=== PATIENT | female | born 1985 | race Caucasian/White ===

== ENCOUNTER 2017-09-05 22:37 | Emergency (ER) | payer MEDICAID, SELFPAY ==
[2017-09-05 22:37] VITALS: BP 109/74; PULSE 104; RESP 16; TEMP 37.2; O2SAT 97; BMI 22.1
--- NOTE | 2017-09-05 23:40 | ED.VISSUMM ---
- ER Visit Summary Date of Service: 09/05/17 Chief Complaint: [] Abscess left lateral neck for for 5 days History of Present Illness: The patient is a 32 F [] real past history no history of diabetes MRSA or infections no compromising issues she reports for about for 5 days she has noticed a swelling area involving the left lateral neck area intermittently drains again she has no history of MRSA or diabetes otherwise healthy no other complaints no trauma Physical Examination: [] But a 2 cm circular area to the left lateral neck that is warm and slightly fluctuant it has come to a volcanic-type head the oral cavity HEENT exam is unremarkable the anterior necks unremarkable neck is fully supple the midline neck is unremarkable the chest abdomen upper lower extremities the rest of the skin exams unremarkable Test Results: [] Emergency Department Course and Treatment: [] Patient asked for I&D this area was sterilely prepped local anesthetic and then opened with I&D 11 blade cruciate productive of thick yellow fluid irrigated loculations broken down, cultures obtained patient will be started on Bactrim, Naprosyn and Percocet secondary to allergies to Vicodin and she will follow-up [place] on-call return for change in symptoms she understands that wound culture result is not available tonight and has to be followed up Treatment Plan: [] Disposition: [] Stable Impression: [] Left lateral neck abscess status post I&D This note was generated with [employer] dictation software. It may contain incorrect words, spelling, and punctuation that were not noted in review of the chart prior to signing ED Disposition - Plan for ED Patient: Chief Complaint: Abscess Referrals: Care Physician,No Primary [Primary Care Provider] -
--- NOTE | 2017-09-05 23:41 | ED.DEP ---
ED Disposition - Plan for ED Patient: Chief Complaint: Abscess Instructions: ED Abscess IandD Prescriptions: Oxycodone HCl/Acetaminophen [Percocet 5/325] 1 tab PO Q6H PRN PRN #12 tab PRN Reason: Pain Naproxen [Naprosyn] 500 mg PO BID PRN #20 tab Smz/Tmp Ds [Bactrim Ds] 2 tab PO BID #28 tab Referrals: Care Physician,No Primary [Primary Care Provider] - Vj Diaz DO [STAFF PHYSICIAN] -
--- NOTE | 2017-09-05 23:45 | ED.DEP ---
ED Disposition - Plan for ED Patient: Chief Complaint: Abscess Instructions: ED Abscess IandD Prescriptions: Oxycodone HCl/Acetaminophen [Percocet 5/325] 1 tab PO Q6H PRN PRN #12 tab PRN Reason: Pain Naproxen [Naprosyn] 500 mg PO BID PRN #20 tab Smz/Tmp Ds [Bactrim Ds] 2 tab PO BID #28 tab Referrals: Vj Diaz DO [STAFF PHYSICIAN] - Care Physician,No Primary [Primary Care Provider] -
[2017-09-05] MEDS: Smz/Tmp Ds Tablet 1 TABLET PO (23:55)
[2017-09-05] MEDS: Ondansetron ODT 4 MG Tablet PO (23:55)
[2017-09-06 00:17] VITALS: RESP 18
--- NOTE | 2017-09-08 11:05 | ED.RN ---
Dr Jay determines no further action needed related to wound culture results.
== END 2017-09-06 00:18 | disposition home or self-care (01) ==
LOC: ED 09-06 00:15
PROVIDERS: Emergency Provider Emergency Medicine
DX: L02.11 Cutaneous abscess of neck (principal); Z79.899 Other long term (current) drug therapy
CPT/HCPCS: 10060; 87070; 87077; 87186; 87205; 96374; 99283

== ENCOUNTER 2017-09-18 11:13 | Emergency (ER) | payer MEDICAID, SELFPAY ==
[2017-09-18 11:14] VITALS: BP 128/91; PULSE 80; RESP 18; TEMP 36.4; O2SAT 100; BMI 20.5
--- NOTE | 2017-09-18 11:58 | ED.DCSUM_ITS ---
- ER Visit Summary Date of Service: 09/18/17 Chief Complaint: Low back pain History of Present Illness: The patient is a 32 F history of depression, PTSD, schizophrenia. Reportedly rheumatoid arthritis. Denies any fall or trauma. She denies any fever or dysuria. She has never had any back surgery. She says her mid lower back hurt this morning. She has had pain like this before. Denies any numbness or weakness to her lower extremities. No bowel or bladder incontinence or retention. Physical Examination: Well-appearing young female. Vital signs are stable afebrile. H EENT exam unremarkable. Neck nontender. Lungs clear to auscultation bilaterally. Heart regular rhythm no murmur. Abdomen is soft and nontender. Normal bowel sounds no peritoneal signs. She is moving all 4 extremities. Neurovascular intact. No cauda equina. No saddle anesthesia. 5 out of 5 motor strength to both dorsi and plantar flexion to both lower extremities. Normal medial thigh sensation. Normal range of motion. Back exam is unremarkable. She describes pain in the lower thoracic and lumbar spine there is no ecchymosis or bruising. No signs of trauma. No warmth or redness. And no localized point of tenderness. Test Results: [] Emergency Department Course and Treatment: IM Toradol discharged to home. Treatment Plan: [] Disposition: Discharge Impression: Acute atraumatic musculoskeletal back pain History of PTSD, depression and schizophrenia. This note was generated with [employer] dictation software. It may contain incorrect words, spelling, and punctuation that were not noted in review of the chart prior to signing ED Disposition - Plan for ED Patient: Chief Complaint: Back Referrals: Care Physician,No Primary [Primary Care Provider] -
--- NOTE | 2017-09-18 11:58 | ED.DEP ---
ED Disposition - Plan for ED Patient: Disposition: Home or Assisted Living Chief Complaint: Back Instructions: ED Neck Back Pain General Referrals: Ruben Jay MD [NON-STAFF] - 1 Week if not improving Additional Instructions: Motrin and Tylenol for pain. Follow-up the primary care physician if not improving in 1 week.
[2017-09-18] MEDS: Ketorolac 60 MG/2 ML Vial IM (12:13)
== END 2017-09-18 12:34 | disposition home or self-care (01) ==
PROVIDERS: Emergency Provider Emergency Medicine
DX: M54.5 Low back pain (principal); F43.10 Post-traumatic stress disorder, unspecified; F32.9 Major depressive disorder, single episode, unspecified; F20.9 Schizophrenia, unspecified; M06.9 Rheumatoid arthritis, unspecified; F12.90 Cannabis use, unspecified, uncomplicated; Z79.899 Other long term (current) drug therapy; Z72.0 Tobacco use
CPT/HCPCS: 96372; 99282

== ENCOUNTER 2020-11-28 23:25 | Emergency (ER) | payer MEDICAID, SELFPAY ==
[2020-11-28 23:26] VITALS: BP 140/84; PULSE 90; RESP 18; TEMP 36.2; O2SAT 97; BMI 34.0
--- NOTE | 2020-11-28 23:40 | ED.VIS.GEN ---
History of Present Illness Chief Complaint: Dental Informant: Patient Narrative: 35-year-old female presents with concern for dental pain. It is been present over the past 1 week. Aching pain. Left lower jaw. Denies any fevers, neck pain, vision change, headache. Past Medical History - Allergies and Home Meds Allergies/Adverse Reactions: Allergies latex Allergy (Mild, Verified 11/28/20 23:28) Rash acetaminophen [From Vicodin] Adverse Reaction (Verified 11/28/20 23:28) Nausea hydrocodone [From Vicodin] Adverse Reaction (Verified 11/28/20 23:28) Nausea tramadol Adverse Reaction (Verified 11/28/20 23:28) Nausea Primary Care Physician: Care Physician,No Primary [Primary Care Provider] - Prior records reviewed: Yes Past Medical History: None Surgical History: no surgical history Lives: Spouse/ Significant Other Smoking Status: Current every day smoker Alcohol: None Drugs: None Review of Systems General: Denies: Chills, Fever, Sweats Eyes: Denies: Visual changes - bilaterally, Diplopia ENT: Reports: - - Dental pain. Denies: Rhinorrhea, Sore throat Cardiovascular: Denies: Chest pain, Palpitations Respiratory: Denies: Dyspnea, Cough, Dyspnea on exertion Gastrointestinal: Denies: Abdominal pain, Nausea, Vomiting, Diarrhea, Melena, Hematochezia Genitourinary: Denies: Dysuria, Hematuria, Frequency Musculoskeletal: Denies: Back pain, Extremity Pain Skin: Denies: Rash, Wounds Neurological: Denies: Headache, Weakness, Numbness Physical Exam Vital Signs/Narrative: Vital Signs Temp Pulse Resp BP Pulse Ox 11/28/20 23:26 97.2 F L 90 18 140/84 H 97 Inital Vital Signs reviewed: Yes General: Well nourished, Well developed, No Acute Distress Head: Normocephalic, Atraumatic Eyes: Perrl, EOMI ENT: Moist mucous membranes, No rhinorrhea, - - Poor dentition throughout. Appears there is a wisdom tooth to the left lower jaw that has grown in incorrectly. I do not see any periapical abscess. Neck: Supple, Nontender Cardiovascular: Regular rate, Regular rhythm, No murmurs Respiratory: No distress, CTA bilaterally, Chest nontender Abdomen: Soft, Nontender, Nondistended, Normal bowel sounds Back: Nontender, Normal Inspection Extremities: Nontender, No edema Skin: Normal color, No rash Neurological: Alert, Oriented x3, Cranial nerves II-XII grossly intact, Normal Strength, Normal Sensation Psychological: Normal affect, Normal Mood Diagnostic/Tx/Re-eval - Medical Decision Making Patient appears well and nontoxic. No periapical abscess. Will be placed on Naprosyn and penicillin VK. Stable at time of discharge. Impression: 1. Dental pain ED Disposition - Plan for ED Patient: Disposition: Home or Assisted Living Instructions: ED Dental Pain Prescriptions: Naproxen [Naprosyn] 500 mg PO BID #14 tablet Prescription Printed Penicillin V Potassium 500 mg PO 4X/DAY #40 tablet Prescription Printed
[2020-11-28] MEDS: Ketorolac 15 MG/ML Vial IM (23:52)
[2020-11-28] MEDS: Penicillin Vk 250 MG Tablet 500 MG PO (23:53)
[2020-11-29 00:23] VITALS: RESP 16
== END 2020-11-29 00:23 | disposition home or self-care (01) ==
LOC: ED 23:46
PROVIDERS: Emergency Provider Emergency Medicine
DX: K08.89 Other specified disorders of teeth and supporting structures (principal); F17.200 Nicotine dependence, unspecified, uncomplicated
CPT/HCPCS: 96372; 99282

== ENCOUNTER 2020-12-24 21:54 | Emergency (ER) | payer MEDICAID, SELFPAY ==
[2020-12-24 21:55] VITALS: BP 111/75; PULSE 132; RESP 16; TEMP 36.7; O2SAT 98; BMI 34.7
[2020-12-24] MEDS: 0.9% Normal Saline 1,000 ML 1000 ML IV (22:40)
[2020-12-24] MEDS: Ondansetron 4 MG/2 ML Vial IV (22:41)
[2020-12-24 22:48] LABS: Absolute Lymphocyte Count 2.42 X10^3/uL (0.83-4.51); Absolute Neutrophil Count 3.8 X10^3/uL (2.0-7.7); Basophil# 0.06 X10^3/uL; Basophil% 0.7 % (0-1); Eosinophil# 1.24 X10^3/uL; Eosinophils% 15.1 % (0-5); Hematocrit 44.2 % (37-47); Hemoglobin 14.5 g/dL (12.0-15.0); Lymphocyte # 2.42 X10^3/ul (0.83-4.51); Lymphocyte % 29.5 % (19-41); Mean Corp Hgb Conc 32.8 g/dL (32-36); Mean Corpuscular Hgb 28.8 pg (27.0-32.0); Mean Corpuscular Volume 87.9 fL (81-99); Mean Platelet Vol. 10.9 fl (6.2-12.0); Monocyte# 0.65 X10^3/uL; Monocyte% 7.9 % (0-10); NRBC Flagged by Analyzer 0 % (0-5); Neutrophil # 3.82 X10^3/uL (2.7-7.7); Neutrophil % 46.6 % (47-70); Platelet Count 269 K/mm3 (150-450); RBC Distribution Width CV 13.2 % (11.6-14.6); RBC Distribution Width SD 42.8 fl (35.1-43.9); Red Blood Count 5.03 M/mm3 (4.2-5.4); White Blood Count 8.2 K/mm3 (4.4-11.0)
[2020-12-24] MEDS: Famotidine 200 MG/20 ML MDV 20 MG in 0.9% Normal Saline (Pres. free 8 ML 300 MG IV (22:56)
[2020-12-24 23:00] LABS: Lipase 73 U/L (73-393)
--- NOTE | 2020-12-24 23:45 | ED.VIS.GI ---
HPI HPI - GI History of Present Illness Chief Complaint: Abd Pain Informant: patient Abdominal Pain/Flank Pain Onset: Days (Onset for several days.) Timing: Continuous Quality: Burning Location: Epigastric, RUQ and LUQ Maximum Severity: Severe Worsened by: Food Nausea/Vomiting/Emesis GI Symptom: Positive for Nausea; Negative for Vomiting Onset: Yesterday Diarrhea/Melena/Hematochezia GI Symptom: Negative for Diarrhea Associated Symptoms Associated Symptoms: Negative for Dysuria, Frequency, Hematuria and Urgency Narrative Narrative: Patient is a 35-year-old woman who presents with burning epigastric bilateral upper abdominal pain. She is scheduled for an EGD. She does report intolerance to greasy and fried foods. There is family history cholelithiasis. There is also history of inflammatory bowel disorder. She denies blood or mucus in her stool. She denies diarrhea. She denies bouts of diarrhea and then bouts of constipation. She denies fever, chills night sweats. She denies dysuria, frequency, urgency or hematuria. She has not taken anything for the pain. Food exacerbates the pain. The pain does not radiate through to her back. There is no history of trauma. She denies cardiac respiratory symptoms. Menses ended today. Prior similar symptoms: Yes Recent Illness/Hospitalization: No PFSH PFS Medical History Alcohol abuse Anxiety Bipolar affective, mixed Boxers fracture PTSD (post-traumatic stress disorder) Schizo affective schizophrenia Home Medications Abilify QMONTH 11/28/20 [History Last Taken Unknown] naproxen 500 mg PO BID #14 tablet 11/28/20 [Rx Last Taken Unknown] penicillin V potassium 500 mg PO 4X/DAY #40 tablet 11/28/20 [Rx Last Taken Unknown] omeprazole 40 mg PO DAILY #30 cap 12/25/20 [Rx Last Taken Unknown] Allergy/AdvReac Type Severity Reaction Status Date / Time latex Allergy Mild Rash Verified 12/24/20 21:57 acetaminophen [From Vicodin] AdvReac Nausea Verified 12/24/20 21:57 hydrocodone [From Vicodin] AdvReac Nausea Verified 12/24/20 21:57 tramadol AdvReac Nausea Verified 12/24/20 21:57 Surgical History H/O plastic surgery Hx of removal of ovary Social History (Updated 12/24/20 @ 23:[address] Andrés Juarez MD) Smoking Status: Current every day smoker alcohol intake: current alcohol intake frequency: a few times a month substance use type: does not use ROS ROS ED Constitutional Constitutional ED: Denies chills, fever(s), subjective or sweats ENT ENT ED: Denies ear pain, rhinorrhea or sore throat Cardiovascular Cardiovascular: Denies chest pain or palpitations Respiratory/Chest Respiratory/Chest: Denies cough, dyspnea or dyspnea on exertion Gastrointestinal Gastrointestinal: Reports abdominal pain and nausea; Denies constipation, diarrhea, melena or vomiting Genitourinary Genitourinary ED: Denies dysuria, hematuria or urinary frequency Musculoskeletal Musculoskeletal: Denies arthralgias, back pain, myalgias or neck pain Integumentary Denies rash Neurologic Neurologic: Denies headache(s), paresthesias or weakness Hematologic/Lymphatic Hematologic/Lymphatic: Denies easy bleeding or easy bruising EXAM Physical Exam Const Vital Signs: 12/24/20 21:55 12/25/20 00:03 Temperature 98.0 F Temperature Source Temporal Pulse Rate 132 H 75 Respiratory Rate 16 16 Blood Pressure 111/75 110/76 Blood Pressure Mean 87 87 Pulse Ox 98 100 Oxygen Delivery Method Room Air Positive well nourished, well developed and obese General Appearance ED: well developed Nutritional Appearance: obese HEENT Reports TM's clear and dry mucous membranes normocephalic and atraumatic Tympanic Membrane ED: Yes TM's clear Mouth ED: Yes dry mucous membranes Mouth: dry mucous membranes Eyes PERRL and EOMs intact bilaterally General Eye ED: Negative for pale conjunctiva or scleral icterus Neck no lymphadenopathy, supple and no JVD General: tenderness Resp normal respiratory effort and clear to auscultation bilaterally Cardio regular rhythm, S1 normal heart sound, S2 normal heart sound and no murmurs Rate: tachycardic GI non-distended and no masses Palpation: soft and tender LUQ and RUQ; Negative for hepatomegaly, splenomegaly, mass or pulsatile mass Back/Spine no CVA tenderness Thoracic Spine / Upper Back: Negative for thoracic spinal tenderness Lumbar Spine / Lower Back: Negative for lumbar spinal tenderness Extremity full ROM General Extremety ED: Negative for edema General Extremity: Negative for edema Neuro CN's II-XII intact bilaterally and no sensory deficits noted Sensorium / Orientation: alert, oriented to person, oriented to place and oriented to time Motor Exam: strength 5/5 throughout Psych mental status grossly normal and thought process normal Skin no wounds Lesions: no lesions Rashes: no rashes MDM MDM MDM Narrative Medical decision making narrative: Based on location of pain and description this may represent esophagitis, gastritis, peptic ulcer disease also need to consider cholelithiasis with biliary colic. Appropriate blood work was ordered. She was treated with IV Pepcid. Lab Data Attestation: I reviewed the patient's lab results. Labs: Laboratory Results - last 24 hr 12/24/20 12/24/20 22:40 22:40 WBC 8.2 RBC 5.03 Hgb 14.5 Hct 44.2 MCV 87.9 MCH 28.8 MCHC 32.8 RDW Std Deviation 42.8 RDW Coeff of Evelyn 13.2 Plt Count 269 MPV 10.9 Immature Gran % (Auto) 0.200 Neut % (Auto) 46.6 L Lymph % (Auto) 29.5 Rolette % (Auto) 7.9 Eos % (Auto) 15.1 H Baso % (Auto) 0.7 Absolute Neuts (auto) 3.8 Absolute Lymphs (auto) 2.42 Nucleated RBC % 0 Lipase 73 Patient's laboratory results are unremarkable. Patient was reassessed at 1240 a.m. She reports significant improvement. Patient was informed to may have an ulcer versus gastritis versus esophagitis. She was prescribed omeprazole. She was instructed to keep appointment for EGD. Discharge Plan Triage Chief Complaint: Abd Pain ED Provider: Andrés Juarez Dx/Rx/DC Orders Clinical Impression: Acute epigastric pain, Heartburn Instructions: ED Epigastric Pain (Uncertain Cause) Prescriptions: New omeprazole 40 mg capsule,delayed release(DR/EC) 40 mg PO DAILY Qty: 30 RF: 0 No Action Abilify QMONTH RF: 0 penicillin V potassium 500 MG tablet 500 mg PO 4X/DAY Qty: 40 RF: 0 naproxen 500 MG tablet 500 mg PO BID Qty: 14 RF: 0 Primary Care Provider: Care Physician,No Primary Referrals: Care Physician,No Primary [Primary Care Provider] - Doctor,Your [STAFF PHYSICIAN] - 1-2 Weeks Disposition Disposition: Home, self care
[2020-12-25 00:03] VITALS: BP 110/76; PULSE 75; RESP 16; O2SAT 100
== END 2020-12-25 00:52 | disposition home or self-care (01) ==
PROVIDERS: Emergency Provider Emergency Medicine
DX: R10.13 Epigastric pain (principal); R12 Heartburn; R11.0 Nausea; E66.9 Obesity, unspecified; Z68.34 Body mass index [BMI] 34.0-34.9, adult; F31.60 Bipolar disorder, current episode mixed, unspecified; F43.10 Post-traumatic stress disorder, unspecified; F25.9 Schizoaffective disorder, unspecified; Z79.899 Other long term (current) drug therapy; F17.200 Nicotine dependence, unspecified, uncomplicated
CPT/HCPCS: 83690; 85025; 96361; 96374; 96375; 99285; J7030; A4216; J2405; J3490

== ENCOUNTER → 2021-01-21 07:04 | Outpatient (CLI) | payer MEDICAID, SELFPAY ==
[2020-12-24 21:55] VITALS: BMI 34.7
[2021-01-21] MEDS: Methacholine Chloride 18 ml neb kit INHALATION (07:19)
--- NOTE | 2021-01-21 13:14 | BRONCHALL ---
Bronchoprovocation Challenge Bronchoprovocation Challenge Bronchoprovocation Challenge: INTRODUCTION: The patient is a 35-year-old female that presents for a methacholine challenge secondary to shortness of breath. Respiratory therapy reported good patient effort and reproducible results. INTERPRETATION: Initial spirometry did not show any large airways obstructive ventilatory defect and preserved airflows throughout. The patient was then given progressively increasing doses of methacholine in a standardized fashion. At no point during testing did the patient's FEV1 drop to the threshold that would be considered a positive test. IMPRESSION: Negative methacholine challenge.
== END ==
PROVIDERS: PCP Family Medicine; Referring Provider Physician Assistant; Visit Provider Physician Assistant
DX: R06.02 Shortness of breath (principal); R06.2 Wheezing
CPT/HCPCS: 94070; 95070

== ENCOUNTER 2021-04-30 23:35 | Emergency (ER) | payer MEDICAID, SELFPAY ==
[2021-04-30 23:38] VITALS: BP 99/77; PULSE 100; RESP 16; TEMP 35.6; O2SAT 99; BMI 33.2
[2021-05-01 01:06] VITALS: BP 101/78; PULSE 74; RESP 16; TEMP 36.6; O2SAT 97
--- NOTE | 2021-05-01 01:11 | EX.ED.DYSGE1 ---
HPI History of Present Illness Chief Complaint: Abscess Informant: patient Narrative Narrative: Patient presents with a red sore area in her right axilla. This started about 2 days ago. She has no fevers chills sweats or systemic symptoms. No known trauma. She did have a new deodorant but has not used deodorant for couple days because of the soreness. Pressing on it makes it worse. Nothing makes it better. She has not had these before. No other lesions. PFSH PFSH Medical History Alcohol abuse Anxiety Bipolar affective, mixed Boxers fracture PTSD (post-traumatic stress disorder) Schizo affective schizophrenia Home Medications Abilify QMONTH 11/28/20 [History Last Taken Unknown] omeprazole 40 mg PO DAILY #30 cap 12/25/20 [Rx Last Taken Unknown] cephalexin 500 mg PO Q6 #40 cap 05/01/21 [Rx Last Taken Unknown] ondansetron 4 mg PO Q8H 2 Days #6 tab 05/01/21 [Rx Last Taken Unknown] oxycodone-acetaminophen [Percocet] 1 tab PO Q6H PRN 3 Days #10 tab 05/01/21 [Rx Last Taken Unknown] sulfamethoxazole-trimethoprim [Bactrim DS] 1 tab PO BID #20 tab 05/01/21 [Rx Last Taken Unknown] Allergy/AdvReac Type Severity Reaction Status Date / Time latex Allergy Mild Rash Verified 12/24/20 21:57 acetaminophen [From Vicodin] AdvReac Nausea Verified 12/24/20 21:57 hydrocodone [From Vicodin] AdvReac Nausea Verified 12/24/20 21:57 tramadol AdvReac Nausea Verified 12/24/20 21:57 Surgical History H/O plastic surgery Hx of removal of ovary Social History Smoking Status: Current every day smoker tobacco type: cigarettes alcohol intake: current alcohol intake frequency: a few times a month substance use type: does not use ROS ROS ED Constitutional Constitutional ED: Denies chills, fever(s) or subjective Cardiovascular Cardiovascular: Denies chest pain or racing heartbeat Respiratory/Chest Respiratory/Chest: Denies dyspnea Gastrointestinal Gastrointestinal: Denies nausea or vomiting Musculoskeletal Musculoskeletal: Reports other Details: See history of present illness. Integumentary Reports other Details: See history of present illness. Neurologic Neurologic: Denies headache(s) Endocrine Endocrinology: Denies polydipsia or polyuria EXAM Physical Exam Const Vital Signs: 04/30/21 23:38 05/01/21 01:06 Temperature 96.1 F L 97.8 F Temperature Source Axillary Temporal Pulse Rate 100 74 Respiratory Rate 16 16 Blood Pressure 99/77 101/78 Blood Pressure Mean 84 85 Pulse Ox 99 97 Oxygen Delivery Method Room Air Room Air Positive well nourished and well developed General Appearance ED: well developed and NAD HEENT Reports moist mucous membranes Eyes General Eye ED: Negative for scleral icterus Resp normal respiratory effort Cardio regular rate and regular rhythm GI normal to inspection, nondistended, normoactive bowel sounds and non-tender Palpation: soft Extremity Extremity Narrative: Patient does have an erythematous area in her right axilla. It is about 2 cm around. It feels firm and indurated. I do not feel a soft center. I do not feel any surrounding lymphadenopathy. Neuro Sensorium / Orientation: alert Skin General Skin Exam: other See above. MDM MDM MDM Narrative Medical decision making narrative: I talked with the patient about anesthesia and incision. We agreed to do ultrasound. I did bedside ultrasound of the area down to about 5 cm. I do not see any fluctuant borders fluid-filled area at this time. I think this is indurated. It is only been going on for about 40 to 48 hours. I explained that we will still get her on antibiotics. This should either resolve with antibiotics or it may come to a soft center in a head that could be drained. Either of these should occur within the next 72 hours. If it does rise up and get a soft center she should return for drainage as this will help her get better sooner. I also did online prescribing report check. She has 0 controlled substances. Discharge Plan Triage Chief Complaint: Abscess ED Provider: Ja Gamble Dx/Rx/DC Orders Clinical Impression: Cellulitis of axilla, right Instructions: ED Cellulitis Prescriptions: New cephalexin [cephalexin] 500 MG capsule 500 mg PO Q6 Qty: 40 RF: 0 sulfamethoxazole-trimethoprim [Bactrim DS] 800-160 mg tablet 1 tab PO BID Qty: 20 RF: 0 oxycodone-acetaminophen [Percocet] 5-325 mg tablet 1 tab PO Q6H PRN (Reason: pain) 3 Days Qty: 10 RF: 0 ondansetron 4 mg tablet,disintegrating 4 mg PO Q8H 2 Days Qty: 6 RF: 0 No Action Abilify QMONTH RF: 0 omeprazole 40 mg capsule,delayed release(DR/EC) 40 mg PO DAILY Qty: 30 RF: 0 Primary Care Provider: Regino Luis Referrals: Regino Luis MD [Primary Care Provider] - 3-5 Days if not improving Disposition Disposition: Home, Self Care
[2021-05-01] MEDS: Ondansetron ODT 4 MG Tablet PO (01:38)
[2021-05-01] MEDS: Cephalexin 250 MG Capsule 500 MG PO (01:38)
[2021-05-01] MEDS: oxyCODONE 5 MG Tablet PO (01:38)
[2021-05-01] MEDS: Smz/Tmp Ds Tablet 1 TABLET PO (01:38)
[2021-05-01 01:43] VITALS: RESP 16
== END 2021-05-01 01:43 | disposition home or self-care (01) ==
PROVIDERS: Emergency Provider Emergency Medicine; PCP Family Medicine
DX: L03.111 Cellulitis of right axilla (principal); F43.10 Post-traumatic stress disorder, unspecified; F41.9 Anxiety disorder, unspecified; F31.9 Bipolar disorder, unspecified; F25.9 Schizoaffective disorder, unspecified; Z79.899 Other long term (current) drug therapy; F17.210 Nicotine dependence, cigarettes, uncomplicated
CPT/HCPCS: 99283

== ENCOUNTER 2021-12-15 22:41 | Emergency (ER) | payer MEDICARE, MEDICAID, SELFPAY ==
[2021-12-15 22:42] VITALS: BP 125/88; PULSE 100; RESP 15; TEMP 36.1; O2SAT 99; BMI 31.7
--- NOTE | 2021-12-15 23:05 | EX.ED.DYSGE1 ---
HPI History of Present Illness Chief Complaint: Dental Narrative Narrative: Patient is a 36-year-old female who states about 1 week ago she was eating when she broke one of her left lower molar. She states she placed a [id number] temporary filling and felt she was doing well but in the last 1 day has had increased left lower jaw pain and swelling. She denies any fevers chills difficulty breathing or swallowing but states she does have concern for developing infection and therefore comes in for evaluation COUNT INCLUDES THE [facility] PFS Medical History Alcohol abuse Anxiety Bipolar affective, mixed Boxers fracture PTSD (post-traumatic stress disorder) Schizo affective schizophrenia Home Medications Abilify QMONTH 11/28/20 [History Last Taken Unknown] clindamycin HCl 300 mg PO 4X/DAY 10 Days #40 cap 12/15/21 [Rx Last Taken Unknown] oxycodone-acetaminophen [Percocet] 1 tab PO Q6H PRN 3 Days #12 tab 12/15/21 [Rx Last Taken Unknown] Allergy/AdvReac Type Severity Reaction Status Date / Time latex Allergy Mild Rash Verified 12/15/21 22:43 acetaminophen [From Vicodin] AdvReac Nausea Verified 12/15/21 22:43 hydrocodone [From Vicodin] AdvReac Nausea Verified 12/15/21 22:43 tramadol AdvReac Nausea Verified 12/15/21 22:43 Surgical History H/O plastic surgery Hx of removal of ovary Social History Smoking Status: Current every day smoker tobacco type: cigarettes alcohol intake: current alcohol intake frequency: a few times a month substance use type: does not use ROS ROS ED Constitutional Constitutional ED: Denies chills or fever(s) ENT ENT ED: Reports other Details: Positive dental pain ; Denies sore throat Cardiovascular Cardiovascular: Denies chest pain Respiratory/Chest Respiratory/Chest: Denies cough or dyspnea Gastrointestinal Gastrointestinal: Denies abdominal pain, diarrhea, nausea or vomiting Genitourinary Genitourinary ED: Denies dysuria Musculoskeletal Musculoskeletal: Denies myalgias Integumentary Denies rash Neurologic Neurologic: Denies headache(s) Hematologic/Lymphatic Hematologic/Lymphatic: Denies easy bleeding or easy bruising EXAM Physical Exam Const Vital Signs: 12/15/21 22:42 12/15/21 23:12 Temperature 96.9 F L Temperature Source Temporal Pulse Rate 100 Respiratory Rate 15 18 Blood Pressure 125/88 H Blood Pressure Mean 100 Pulse Ox 99 Oxygen Delivery Method Room Air Positive well nourished and well developed General Appearance ED: well developed HEENT Reports moist mucous membranes HEENT Narrative: Patient has dental caries present with soft tissue swelling in the left lower jaw but no obvious dental abscess. No oral lesions no airway edema or compromise Eyes PERRL and EOMs intact bilaterally Neck supple Neck Narrative: No brawny edema in the submental space to suggest Nando's angina Resp normal respiratory effort and clear to auscultation bilaterally Cardio regular rate and regular rhythm Extremity normal to inspection Neuro oriented x3 and CN's II-XII intact bilaterally Sensorium / Orientation: alert Motor Exam: strength 5/5 throughout Psych mental status grossly normal Skin no rashes or lesions noted MDM MDM MDM Narrative Medical decision making narrative: Patient presented to the ER afebrile without signs of respiratory distress or Nando's angina and therefore I felt no need for imaging or laboratory studies. Patient was informed she most likely has a developing dental infection but as there is no obvious abscess on exam there is no need for incision and drainage. Therefore patient was placed on antibiotics and pain medication and will follow up with her dentist for further evaluation and treat Discharge Plan Triage Chief Complaint: Dental ED Provider: Hakeem Aponte Dx/Rx/DC Orders Clinical Impression: Pain, dental, Dental infection Instructions: ED Dental Pain, ED Dental Abscess Prescriptions: New clindamycin HCl 300 mg capsule 300 mg PO 4X/DAY 10 Days Qty: 40 RF: 0 oxycodone-acetaminophen [Percocet] 5-325 mg tablet 1 tab PO Q6H PRN (Reason: pain) 3 Days Qty: 12 RF: 0 No Action Abilify QMONTH RF: 0 Primary Care Provider: Regino Luis Referrals: Regino Luis MD [Primary Care Provider] - Dentist,Your [STAFF PHYSICIAN] - 3-5 Days Disposition Disposition: Home, Self Care Discharge Date/Time: 12/15/21 23:15
[2021-12-15] MEDS: oxyCODONE 5 MG Tablet 10 MG PO (23:11)
[2021-12-15] MEDS: Clindamycin HCl 150 MG Capsule 300 MG PO (23:11)
[2021-12-15 23:12] VITALS: RESP 18
== END 2021-12-15 23:15 | disposition home or self-care (01) ==
PROVIDERS: Emergency Provider Emergency Medicine; PCP Family Medicine; Visit Provider Emergency Medicine
DX: K04.7 Periapical abscess without sinus (principal); F25.9 Schizoaffective disorder, unspecified; F31.9 Bipolar disorder, unspecified; F17.210 Nicotine dependence, cigarettes, uncomplicated; F43.10 Post-traumatic stress disorder, unspecified; Z79.899 Other long term (current) drug therapy
CPT/HCPCS: 99283

== ENCOUNTER 2022-05-21 20:24 | Emergency (ER) | payer MEDICARE, MEDICAID, SELFPAY ==
[2022-05-21 20:24] VITALS: BP 111/80; PULSE 125; RESP 16; TEMP 36.8; O2SAT 97; BMI 28.0
[2022-05-21 20:27] VITALS: BP 111/80; PULSE 125; RESP 16; TEMP 36.8; O2SAT 97
--- NOTE | 2022-05-21 21:36 | EX.ED.VISEXT ---
HPI History of Present Illness Chief Complaint: Bite Informant: patient Narrative Narrative: Patient was bit by a dog last evening. She is not sure but she thinks it could have been a strain in the area. It approached her while she was walking her dog and then got aggressive. No discoordination or frothing. Patient's tetanus is up-to-date within just the last couple years. No history of diabetes or immune compromise. No other injury other than the right proximal calf laterally. ROS ROS ED Constitutional Constitutional ED: Denies chills, fever(s) or subjective Cardiovascular Cardiovascular: Reports other Details: This her heart rate was high here but patient has no symptoms. She does states she is mildly nervous. ; Denies chest pain or palpitations Respiratory/Chest Respiratory/Chest: Denies cough Musculoskeletal Musculoskeletal: Reports other Details: Injury to right calf as above Integumentary Reports other Details: Bite lugo and bruising to right calf Neurologic Neurologic: Denies paresthesias or weakness Hematologic/Lymphatic Hematologic/Lymphatic: Denies easy bleeding, easy bruising or lymphadenopathy Allergic/Immunologic Allergic/Immunologic ED: Denies urticaria PFSH PFS Medical History Alcohol abuse Anxiety Bipolar affective, mixed Boxers fracture PTSD (post-traumatic stress disorder) Schizo affective schizophrenia Home Medications Abilify QMONTH 11/28/20 [History Last Taken Unknown] amoxicillin 875 mg-potassium clavulanate 125 mg tablet 1 tab PO BID #10 tabs 05/21/22 [Rx Last Taken Unknown] buspirone 10 mg tablet 10 mg PO DAILY 05/21/22 [History Last Taken Unknown] fluoxetine 20 mg capsule (Prozac) 20 mg PO DAILY 05/21/22 [History Last Taken Unknown] Allergy/AdvReac Type Severity Reaction Status Date / Time latex Allergy Mild Rash Verified 05/21/22 20:27 acetaminophen [From Vicodin] AdvReac Nausea Verified 05/21/22 20:27 hydrocodone [From Vicodin] AdvReac Nausea Verified 05/21/22 20:27 tramadol AdvReac Nausea Verified 05/21/22 20:27 Surgical History H/O plastic surgery Hx of removal of ovary Social History Smoking Status: Current every day smoker tobacco type: cigarettes alcohol intake: current alcohol intake frequency: a few times a month substance use type: does not use EXAM Physical Exam Const Vital Signs: 05/21/22 20:24 05/21/22 20:27 Temperature 98.2 F 98.2 F Temperature Source Temporal Temporal Pulse Rate 125 H 125 H Respiratory Rate 16 16 Blood Pressure 111/80 111/80 Blood Pressure Mean 90 90 Pulse Ox 97 97 Oxygen Delivery Method Room Air Room Air Positive well nourished and well developed General Appearance ED: well developed and NAD HEENT Reports moist mucous membranes Neck full ROM Cardio regular rate and regular rhythm Cardio Narrative: Heart rate is in the high 90s now peripheral pulses normal. Extremity Extremity Narrative: Patient has multiple abrasions and small punctures and tears of the skin at the right lower extremity below the knee but proximally on the calf. This is not anywhere near the knee that it would be intra-articular. There is no erythema or drainage. It does not look to be infected at this point. Neuro no sensory deficits noted Sensorium / Orientation: alert Motor Exam: strength 5/5 throughout Skin Skin Narrative: See above extremity exam MDM MDM MDM Narrative Medical decision making narrative: Patient will have antibiotics given. Tetanus is up-to-date. She is already clean the area. We discussed signs and symptoms of infection and that she would need to return if she sees these. We discussed wound care. We discussed the issue of rabies but there is no indication by behavior or statistical likelihood that this dog had rabies. Discharge Plan Triage Chief Complaint: Bite ED Provider: Ja Gamble Dx/Rx/DC Orders Clinical Impression: Dog bite of lower extremity Instructions: ED Dog Bite Prescriptions: New amoxicillin-pot clavulanate 875-125 mg tablet 1 tab PO BID Qty: 10 0RF No Action Abilify QMONTH buspirone 10 mg tablet 10 mg PO DAILY fluoxetine [Prozac] 20 mg capsule 20 mg PO DAILY Primary Care Provider: Regino Luis Referrals: Regino Luis MD [Primary Care Provider] - 3-5 Days if not improving Disposition Disposition: Home, Self Care
[2022-05-21] MEDS: Amox/Clavulanate 875 MG Tablet PO (21:49)
== END 2022-05-21 21:54 | disposition home or self-care (01) ==
LOC: ED 21:50
PROVIDERS: Emergency Provider Emergency Medicine; PCP Family Medicine; Visit Provider Emergency Medicine
DX: S81.851A Open bite, right lower leg, initial encounter (principal); F17.210 Nicotine dependence, cigarettes, uncomplicated; F41.9 Anxiety disorder, unspecified; Z79.899 Other long term (current) drug therapy; W54.0XXA Bitten by dog, initial encounter; Y93.K1 Activity, walking an animal
CPT/HCPCS: 99282

== ENCOUNTER 2022-06-20 05:10 | Emergency (ER) | payer MEDICARE, SELFPAY ==
[2022-06-20 05:11] VITALS: BP 130/89; PULSE 104; RESP 18; TEMP 36.6; O2SAT 98; BMI 29.0
--- NOTE | 2022-06-20 05:16 | EDS_ITS ---
HPI History of Present Illness Chief Complaint: Sore Throat Narrative Narrative: Patient presents with indigestion, burning in her throat and esophagus. This is consistent with her chronic recurrent gastritis, she has no back pain with this. She has some slight nausea, she has seen GI and has been diagnosed with ulcer disease. She has no abdominal pain she has no chest pain or shortness of breath. Her biggest complaint is burning she has decreased p.o. intake from this. [facility] Medical History Alcohol abuse Anxiety Bipolar affective, mixed Boxers fracture PTSD (post-traumatic stress disorder) Schizo affective schizophrenia Home Medications Abilify ONT 11/28/20 [History Last Taken Unknown] buspirone 10 mg tablet 10 mg PO DAILY 05/21/22 [History Last Taken Unknown] fluoxetine 20 mg capsule (Prozac) 20 mg PO DAILY 05/21/22 [History Last Taken Unknown] omeprazole 40 mg capsule,delayed release 40 mg PO DAILY #30 caps 06/20/22 [Rx Last Taken Unknown] sucralfate 1 gram tablet (Carafate) 1 g PO BID #20 tabs 06/20/22 [Rx Last Taken Unknown] Allergy/AdvReac Type Severity Reaction Status Date / Time latex Allergy Mild Rash Verified 06/20/22 05:17 acetaminophen [From Vicodin] AdvReac Nausea Verified 06/20/22 05:17 hydrocodone [From Vicodin] AdvReac Nausea Verified 06/20/22 05:17 tramadol AdvReac Nausea Verified 06/20/22 05:17 Surgical History H/O plastic surgery Hx of removal of ovary Social History Smoking Status: Current every day smoker tobacco type: cigarettes alcohol intake: current alcohol intake frequency: a few times a month substance use type: does not use ROS ROS ED ROS Narrative Past medical history: Reviewed Medications: Reviewed Social history: Noncontributory Review of systems: All systems negative except as indicated General: No fever Eyes: No visual changes ENT: No upper airway congestion, normal voice Neck: No neck pain Cardiovascular: No chest pain Respiratory: No shortness of breath or cough Gastrointestinal: As in HPI Genitourinary: No dysuria Musculoskeletal: Denies myalgias no difficulty with ambulation Skin: No rash EXAM Physical Exam Narrative Exam Narrative: Physical exam General: Well nourished, Well developed, No Acute Distress Head: Normocephalic, Atraumatic Eyes: Conjunctiva not pale ENT: Moist mucous membranes Neck: Supple, Nontender, No lymphadenopathy Cardiovascular: Regular rate, Regular rhythm Respiratory: No distress, CTA bilaterally Abdomen: Soft, Nontender, Nondistended Back: Nontender, Normal Inspection. Negative for: CVA tenderness Extremities: Nontender, No edema Skin: Normal color, No rash Neurological: Alert, Normal Strength, Normal Sensation Psychological: Normal affect Const Vital Signs: 06/20/22 05:11 Temperature 97.8 F Temperature Source Temporal Pulse Rate 104 H Respiratory Rate 18 Blood Pressure 130/89 H Blood Pressure Mean 102 Pulse Ox 98 Oxygen Delivery Method Room Air MDM MDM MDM Narrative Medical decision making narrative: Patient likely has gastritis will treat as such, she is to follow-up with her GI doctor. We will add Carafate to her treatment Discharge Plan Triage Chief Complaint: Sore Throat ED Provider: Larry Gonzalez Dx/Rx/DC Orders Clinical Impression: Heartburn, Acute epigastric pain Instructions: Peptic Ulcer Prescriptions: New sucralfate [Carafate] 1 gram tablet 1 g PO BID Qty: 20 0RF omeprazole 40 mg capsule,delayed release(DR/EC) 40 mg PO DAILY Qty: 30 0RF No Action Abilify QMONTH buspirone 10 mg tablet 10 mg PO DAILY fluoxetine [Prozac] 20 mg capsule 20 mg PO DAILY Stand Alone Forms: ED Work / School Excuse Primary Care Provider: Ruben Jay Referrals: Ruben Jay MD [Primary Care Provider] - 3-5 Days
[2022-06-20] MEDS: Ondansetron ODT 4 MG Tablet PO (05:19)
[2022-06-20] MEDS: Mag Hydrox/Al Hydrox/Simeth 30 ML UDC PO (05:19)
[2022-06-20] MEDS: Sucralfate 1 GM Tablet PO (05:36)
== END 2022-06-20 05:51 | disposition home or self-care (01) ==
PROVIDERS: Emergency Provider Emergency Medicine; PCP Family Medicine; Visit Provider Emergency Medicine
DX: R10.13 Epigastric pain (principal); J02.9 Acute pharyngitis, unspecified; F17.210 Nicotine dependence, cigarettes, uncomplicated; K29.50 Unspecified chronic gastritis without bleeding
CPT/HCPCS: 99284; A4216

== ENCOUNTER 2022-06-21 15:25 | Emergency (ER) | payer MEDICARE, SELFPAY ==
[2022-06-21 15:26] VITALS: BP 105/76; PULSE 99; RESP 18; TEMP 36.6; O2SAT 99; BMI 28.3
--- NOTE | 2022-06-21 15:45 | EDS_ITS ---
HPI History of Present Illness Chief Complaint: Nausea/Vomiting Informant: patient Narrative Narrative: Patient presents with epigastric burning feeling, mild nausea, inability to fill meds from recent visit. She was prescribed Carafate but could not get that filled. She did fill the omeprazole. She states she has had years of reflux. But this seems worse than normal although with similar location and pain. It is burning in the epigastric. When she eats the burning gets worse. She thinks she may have lost about 5 pounds in the last month but not sure. She did have a scope at [facility] about a month or so ago. She was told it showed a small ulcer. She is not sure what the next plan or follow-up is. She has not vomited. She does have some softer stools but no black or blood. No pain in other areas of the abdomen. Only intra-abdominal surgery was for an ovarian cyst. She has no pain in that area. She still has her gallbladder. She is not getting right upper quadrant pain. She has no chest pain. [facility] Medical History Alcohol abuse Anxiety Bipolar affective, mixed Boxers fracture Peptic ulcer PTSD (post-traumatic stress disorder) Schizo affective schizophrenia Home Medications Abilify QMONTH 11/28/20 [History Last Taken Unknown] buspirone 10 mg tablet 10 mg PO DAILY 05/21/22 [History Last Taken Unknown] fluoxetine 20 mg capsule (Prozac) 20 mg PO DAILY 05/21/22 [History Last Taken Unknown] omeprazole 40 mg capsule,delayed release 40 mg PO DAILY #30 caps 06/20/22 [Rx Last Taken Unknown] sucralfate 1 gram tablet (Carafate) 1 g PO BID #20 tabs 06/20/22 [Rx Last Taken Unknown] sucralfate 1 gram tablet (Carafate) 1 g PO TID #30 tabs 06/21/22 [Rx Last Taken Unknown] Allergy/AdvReac Type Severity Reaction Status Date / Time latex Allergy Mild Rash Verified 06/21/22 15:26 acetaminophen [From Vicodin] AdvReac Nausea Verified 06/21/22 15:26 hydrocodone [From Vicodin] AdvReac Nausea Verified 06/21/22 15:26 tramadol AdvReac Nausea Verified 06/21/22 15:26 Surgical History H/O plastic surgery Hx of removal of ovary Social History Smoking Status: Current every day smoker tobacco type: cigarettes alcohol intake: current alcohol intake frequency: a few times a month substance use type: does not use ROS ROS ED Constitutional Constitutional ED: Denies chills or fever(s) ENT ENT ED: Reports other Details: Burning after eating but it does not rise into her throat. ; Denies ear pain, rhinorrhea or sore throat Cardiovascular Cardiovascular: Denies chest pain Respiratory/Chest Respiratory/Chest: Denies cough or dyspnea Gastrointestinal Gastrointestinal: Reports nausea and other Details: Soft stools but not diarrhea. ; Denies abdominal pain or vomiting Genitourinary Genitourinary ED: Denies dysuria Musculoskeletal Musculoskeletal: Denies arthralgias, back pain or myalgias Psychiatric Psychiatric: Reports anxiety Endocrine Endocrinology: Denies polydipsia or polyuria Hematologic/Lymphatic Hematologic/Lymphatic: Denies easy bleeding or easy bruising Allergic/Immunologic Allergic/Immunologic ED: Denies urticaria EXAM Physical Exam Const Vital Signs: 06/21/22 15:26 Temperature 97.8 F Temperature Source Temporal Pulse Rate 99 Respiratory Rate 18 Blood Pressure 105/76 Blood Pressure Mean 85 Pulse Ox 99 Oxygen Delivery Method Room Air Positive well nourished and well developed General Appearance ED: well developed and NAD; Negative for pallor HEENT Reports moist mucous membranes; Denies dry mucous membranes Mouth ED: No dry mucous membranes Mouth: No dry mucous membranes Eyes General Eye ED: Negative for scleral icterus Resp normal respiratory effort and clear to auscultation bilaterally Cardio regular rate and regular rhythm GI normal to inspection, nondistended, normoactive bowel sounds GI Narrative: Patient has minimal epigastric tenderness without rebound or guarding. I feel no hernia. She really does not have right upper quadrant tenderness. No symptoms or tenderness in the lower abdomen. Bowel sounds are normal. No distention. Narrative: No CVAT Back/Spine no CVA tenderness Extremity General Extremety ED: Negative for tenderness Neuro Sensorium / Orientation: alert Psych mental status grossly normal Skin General Skin Exam: Negative for jaundice or pallor MDM MDM MDM Narrative Medical decision making narrative: This is patient's second visit. Her symptoms are very consistent with gastritis and peptic ulcer disease. No reported bleeding. She has not been able to fill some of the meds. I will see if we can get these filled locally at the hospital. I am doing blood work to look for signs of other issues, drop in hemoglobin, elevated lipase, elevated liver function test etc. CBC shows no acute abnormalities. Electrolytes, liver function test and lipase are normal. Patient was better with meds here. I do not think this requires CAT scan. She has a EGD that showed an ulcer per her report. She is on meds. I will see if we can fill her Carafate here so she can start that. We discussed follow-up with her pet house sitter at [facility] and reasons to return. Lab Data Attestation: I reviewed the patient's lab results. Labs: Laboratory Results - last 24 hr 06/21/22 06/21/22 15:30 15:30 WBC 5.7 RBC 4.98 Hgb 14.4 Hct 43.7 MCV 87.8 MCH 28.9 MCHC 33.0 RDW Std Deviation 39.8 RDW Coeff of Evelyn 12.4 Plt Count 244 MPV 11.1 Immature Gran % (Auto) 0.400 Neut % (Auto) 54.7 Lymph % (Auto) 26.7 [place] % (Auto) 10.5 H Eos % (Auto) 7.0 H Baso % (Auto) 0.7 Absolute Neuts (auto) 3.1 Absolute Lymphs (auto) 1.52 Nucleated RBC % 0 Sodium 137 Potassium 4.0 Chloride 102 Carbon Dioxide 28.0 Anion Gap 7 BUN 11 Creatinine 0.96 Estim Creat Clear Calc 85.48 Est GFR (MDRD) Af Amer 85 Est GFR (MDRD) Non-Af 70 BUN/Creatinine Ratio 11.5 Glucose 108 H Calcium 9.5 Total Bilirubin 0.50 AST 14 L ALT 21 Alkaline Phosphatase 101 Total Protein 7.9 Albumin 3.8 Globulin 4.1 Albumin/Globulin Ratio 0.9 Lipase 117 Discharge Plan Triage Chief Complaint: Nausea/Vomiting ED Provider: Ja Gamble Dx/Rx/DC Orders Clinical Impression: Acute epigastric pain, Heartburn Instructions: Peptic Ulcer, Medicines for Acid Reflux Prescriptions: New sucralfate [Carafate] 1 gram tablet 1 g PO TID Qty: 30 0RF No Action Abilify QMONTH buspirone 10 mg tablet 10 mg PO DAILY fluoxetine [Prozac] 20 mg capsule 20 mg PO DAILY sucralfate [Carafate] 1 gram tablet 1 g PO BID Qty: 20 0RF omeprazole 40 mg capsule,delayed release(DR/EC) 40 mg PO DAILY Qty: 30 0RF Stand Alone Forms: ED Work / School Excuse Primary Care Provider: Ruben Jay Referrals: Rubne Jay MD [Primary Care Provider] - As soon as possible Disposition Disposition: Home, Self Care
[2022-06-21] MEDS: Ondansetron 4 MG/2 ML Vial IV (15:49)
[2022-06-21] MEDS: Mag Hydrox/Al Hydrox/Simeth 30 ML UDC PO (15:49)
[2022-06-21 16:00] LABS: Absolute Lymphocyte Count 1.52 X10^3/uL (0.83-4.51); Absolute Neutrophil Count 3.1 X10^3/uL (2.0-7.7); Basophil# 0.04 X10^3/uL; Basophil% 0.7 % (0-1); Hematocrit 43.7 % (37-47); Hemoglobin 14.4 g/dL (12.0-15.0); Lymphocyte # 1.52 X10^3/ul (0.83-4.51); Lymphocyte % 26.7 % (19-41); Mean Corpuscular Hgb 28.9 pg (27.0-32.0); Mean Corpuscular Volume 87.8 fL (81-99); Mean Platelet Vol. 11.1 fl (6.2-12.0); Monocyte% 10.5 % (0-10); NRBC Flagged by Analyzer 0 % (0-5); Neutrophil # 3.11 X10^3/uL (2.7-7.7); Neutrophil % 54.7 % (47-70); Platelet Count 244 K/mm3 (150-450); RBC Distribution Width CV 12.4 % (11.6-14.6); RBC Distribution Width SD 39.8 fl (35.1-43.9); Red Blood Count 4.98 M/mm3 (4.2-5.4); White Blood Count 5.7 K/mm3 (4.4-11.0)
[2022-06-21 16:12] LABS: ALB/GLOB Ratio 0.9 RATIO (0.9-2.4); AST(SGOT) 14 U/L (15-37); Alanine Aminotransfer ALT/SGPT 21 U/L (13-56); Albumin, Serum 3.8 g/dL (3.2-5.0); Alkaline Phosphatase 101 U/L (45-117); Anion Gap 7 (5-15); BUN 11 mg/dL (7-18); BUN/Creat Ratio 11.5 RATIO (10-20); Calcium,Total 9.5 mg/dL (8.5-10.1); Chloride 102 mmol/L (98-107); Creatinine, Serum 0.96 mg/dL (0.55-1.02); EST Glomerular Filtration Rate 70 mL/min (>60); Est Glom Filt Rate - Afr Amer 85 mL/min (>60); Estimated Creatinine Clearance 85.48 ml/min; Globulin 4.1 g/dL (2.2-4.2); Glucose 108 mg/dL (74-106); Lipase 117 U/L (73-393); Protein, Total 7.9 g/dL (6.4-8.2); Sodium Level 137 mmol/L (136-145)
== END 2022-06-21 17:48 | disposition home or self-care (01) ==
PROVIDERS: Emergency Provider Emergency Medicine; PCP Family Medicine; Visit Provider Emergency Medicine
DX: R10.13 Epigastric pain (principal); R11.2 Nausea with vomiting, unspecified; F17.210 Nicotine dependence, cigarettes, uncomplicated; F41.9 Anxiety disorder, unspecified
CPT/HCPCS: 80053; 83690; 85025; 96374; 99284; A4216; J2405

== ENCOUNTER 2022-10-14 21:43 | Emergency (ER) | payer MEDICARE, SELFPAY ==
[2022-10-14 21:43] VITALS: BP 111/79; PULSE 89; RESP 15; TEMP 36.4; O2SAT 100; BMI 28.9
--- NOTE | 2022-10-14 22:08 | ED.VIS.DENTA ---
HPI History of Present Illness Chief Complaint: Dental Narrative Narrative: Patient presents with left lower jaw pain and swelling and dental pain. No fevers or chills no difficulty swallowing. PFSH PFSH Medical History Alcohol abuse Anxiety Bipolar affective, mixed Boxers fracture Peptic ulcer PTSD (post-traumatic stress disorder) Schizo affective schizophrenia Home Medications Abilify QMONTH 11/28/20 [History Last Taken Unknown] buspirone 10 mg tablet 10 mg PO DAILY 05/21/22 [History Last Taken Unknown] fluoxetine 20 mg capsule (Prozac) 20 mg PO DAILY 05/21/22 [History Last Taken Unknown] omeprazole 40 mg capsule,delayed release 40 mg PO DAILY #30 caps 06/20/22 [Rx Last Taken Unknown] sucralfate 1 gram tablet (Carafate) 1 g PO BID #20 tabs 06/20/22 [Rx Last Taken Unknown] sucralfate 1 gram tablet (Carafate) 1 g PO TID #30 tabs 06/21/22 [Rx Last Taken Unknown] clindamycin HCl 150 mg capsule 300 mg PO Q8H #21 caps 10/14/22 [Rx Last Taken Unknown] Allergy/AdvReac Type Severity Reaction Status Date / Time latex Allergy Mild Rash Verified 10/14/22 21:46 acetaminophen [From Vicodin] AdvReac Nausea Verified 10/14/22 21:46 hydrocodone [From Vicodin] AdvReac Nausea Verified 10/14/22 21:46 tramadol AdvReac Nausea Verified 10/14/22 21:46 Surgical History H/O plastic surgery Hx of removal of ovary Social History Smoking Status: Current every day smoker tobacco type: cigarettes alcohol intake: current alcohol intake frequency: a few times a month substance use type: does not use ROS ROS ED ROS Narrative Past medical history: Reviewed Medications: Reviewed Social history: Noncontributory Review of systems: All systems negative except as indicated General: No fever Eyes: No visual changes ENT: Dental pain as in HPI, facial swelling Neck: No neck pain Hematologic: No easy bleeding or easy bruising EXAM Physical Exam Narrative Exam Narrative: Physical exam General: Well nourished, Well developed, No Acute Distress Head: Normocephalic, Atraumatic Eyes: Conjunctiva not pale ENT: Moist mucous membranes. There is some left-sided lower facial swelling but no induration or fluctuance. There is tenderness over the left lower second molar but no periapical abscess. Neck: Supple, Nontender, No lymphadenopathy Neurological: No facial droop Const Vital Signs: 10/14/22 21:43 Temperature 97.6 F L Temperature Source Temporal Pulse Rate 89 Respiratory Rate 15 Blood Pressure 111/79 Blood Pressure Mean 89 Pulse Ox 100 Oxygen Delivery Method Room Air MDM MDM MDM Narrative Medical decision making narrative: Patient has dental pain. There is also an infection since there is swelling. No drainable abscess at this time. I will treat with antibiotics. Anything changes she is to return. Discharge Plan Triage Chief Complaint: Dental ED Provider: Larry Gonzalez Dx/Rx/DC Orders Clinical Impression: Dental infection, Odontalgia Instructions: ED Dental Pain Prescriptions: New clindamycin HCl 150 mg capsule 300 mg PO Q8H Qty: 21 0RF No Action Abilify QMONTH buspirone 10 mg tablet 10 mg PO DAILY fluoxetine [Prozac] 20 mg capsule 20 mg PO DAILY sucralfate [Carafate] 1 gram tablet 1 g PO BID Qty: 20 0RF omeprazole 40 mg capsule,delayed release(DR/EC) 40 mg PO DAILY Qty: 30 0RF sucralfate [Carafate] 1 gram tablet 1 g PO TID Qty: 30 0RF Primary Care Provider: Ruben Jay Referrals: Ruben Jay MD [Primary Care Provider] - Disposition Disposition: Home, Self Care
[2022-10-14] MEDS: Clindamycin HCl 150 MG Capsule 300 MG PO (22:19)
== END 2022-10-14 22:35 | disposition home or self-care (01) ==
LOC: ED 22:23
PROVIDERS: Emergency Provider Emergency Medicine; PCP Family Medicine; Visit Provider Emergency Medicine
DX: K04.7 Periapical abscess without sinus (principal); F17.210 Nicotine dependence, cigarettes, uncomplicated
CPT/HCPCS: 99281; 99283

== ENCOUNTER 2023-11-21 02:19 | Emergency (ER) | payer MEDICARE, MEDICAID, SELFPAY ==
[2023-11-21 02:20] VITALS: BP 115/89; PULSE 97; RESP 18; TEMP 36.3; O2SAT 100; BMI 25.7
[2023-11-21 02:24] VITALS: BP 115/89; PULSE 92; RESP 18; TEMP 36.3; O2SAT 98
--- NOTE | 2023-11-21 02:38 | ED.VIS.DENTA ---
HPI History of Present Illness Chief Complaint: Dental Informant: patient Onset/Context/Timing Onset: Weeks (1-2) Context: Gradual Onset Timing: Continuous Narrative Narrative: Patient states was eating a chicken sandwich 1 or 2 weeks ago when one of her teeth fell apart. It has been hurting ever since. It develops swelling in the face, the swelling is a little better now, but she states the pain has gone down into my shoulder. 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 Left shoulder blade/trapezius is where she is pointing. Hurts more to move. I cannot crack it. States that shoulder is bothering her more than tooth right now. No numbness or tingling anywhere. [facility] Medical History Alcohol abuse Anxiety Bipolar affective, mixed Boxers fracture Peptic ulcer PTSD (post-traumatic stress disorder) Schizo affective schizophrenia Home Medications Abilify QMONTH 11/28/20 [History Last Taken Unknown] buspirone 10 mg tablet 10 mg PO DAILY 05/21/22 [History Last Taken Unknown] fluoxetine 20 mg capsule (Prozac) 20 mg PO DAILY 05/21/22 [History Last Taken Unknown] omeprazole 40 mg capsule,delayed release 40 mg PO DAILY #30 caps 06/20/22 [Rx Last Taken Unknown] sucralfate 1 gram tablet (Carafate) 1 g PO BID #20 tabs 06/20/22 [Rx Last Taken Unknown] sucralfate 1 gram tablet (Carafate) 1 g PO TID #30 tabs 06/21/22 [Rx Last Taken Unknown] clindamycin HCl 150 mg capsule 300 mg (2 x 150 mg) PO Q8H #21 caps 10/14/22 [Rx Last Taken Unknown] amoxicillin 500 mg tablet 500 mg PO TID #30 tabs 11/21/23 [Rx Last Taken Unknown] cyclobenzaprine 10 mg tablet 10 mg PO TID PRN Muscle Spasm #12 TABLETS 11/21/23 [Rx Last Taken Unknown] Allergy/AdvReac Type Severity Reaction Status Date / Time latex Allergy Mild Rash Verified 10/14/22 21:46 acetaminophen [From Vicodin] AdvReac Nausea Verified 10/14/22 21:46 hydrocodone [From Vicodin] AdvReac Nausea Verified 10/14/22 21:46 tramadol AdvReac Nausea Verified 10/14/22 21:46 Surgical History H/O plastic surgery Hx of removal of ovary Social History Smoking Status: Current every day smoker tobacco type: cigarettes alcohol intake: current alcohol intake frequency: a few times a month substance use type: does not use ROS ROS ED Constitutional Constitutional ED: Denies chills or fever(s) Eyes Eyes: Denies change in vision or double vision ENT ENT ED: Reports dental pain; Denies rhinorrhea, sinus pain or throat swelling Cardiovascular Cardiovascular: Denies chest pain or palpitations Respiratory/Chest Respiratory/Chest: Denies cough or dyspnea Musculoskeletal Musculoskeletal: Reports as per HPI and extremity pain Integumentary Denies abscess or rash Neurologic Neurologic: Denies headache(s), paresthesias or weakness EXAM Physical Exam Const Vital Signs: 11/21/23 02:20 11/21/23 02:24 Temperature 97.3 F L 97.3 F L Temperature Source Temporal Temporal Pulse Rate 97 92 Respiratory Rate 18 18 Blood Pressure 115/89 H 115/89 H Blood Pressure Mean 97 97 Pulse Ox 100 98 Oxygen Delivery Method Room Air Room Air Positive well nourished and well developed General Appearance ED: well developed and NAD HEENT HEENT Narrative: Tooth #18 tender, there is a filling within it and part of the tooth around the filling is missing, possibly exposing part of the pulp of the tooth posteriorly below the filling, the pieces of the tooth that are currently present move easily. Tender. No sign of an abscess. No trismus. No objective swelling of the gingiva or the buccal mucosa or external face. No purulent nasal discharge. Face and Sinus: sinuses nontender Throat: posterior oropharynx normal Eyes PERRL and EOMs intact bilaterally Neck no lymphadenopathy and supple Resp normal respiratory effort Extremity normal to inspection Extremity Narrative: Tender in the left trapezius well above the bony scapula. Full range of motion of the shoulder joint itself. Normal on inspection. Neuro oriented x3 and CN's II-XII intact bilaterally Sensorium / Orientation: alert Gait (Neuro): normal gait Psych thought process normal Mood & Affect: anxious Skin no rashes or lesions noted and no wounds MDM MDM MDM Narrative Medical decision making narrative: After discussing pros and cons, patient was amenable to temporary filling. I placed [place] filling into the defect of the tooth posterolaterally, attempting to recreate its natural initial shape. Tolerated well. There is no purulent discharge or bleeding with this. I reassured the patient, she was concerned that the dental infection is gone into her neck and shoulder. I do not think this is the case. I think it reasonable to put her on amoxicillin to prophylax against abscess formation, I think the trapezius strain is musculoskeletal in etiology probably related to her recent work. I do not think she needs any narcotic for this. Furthermore, she has allergies/intolerance to multiple controlled substances. I am giving her a dose of NSAID in addition to amoxicillin and a few Flexeril as a prescription. Discharge Plan Triage Chief Complaint: Dental ED Provider: Bj Carpenter Dx/Rx/DC Orders Clinical Impression: Strain of left trapezius muscle, Dental decay, Odontalgia Instructions: ED Dental Pain, ED Muscle Strain, Extremity Prescriptions: New cyclobenzaprine [cyclobenzaprine] 10 mg tablet 10 mg PO TID PRN (Reason: Muscle Spasm) Qty: 12 0RF amoxicillin 500 mg tablet 500 mg PO TID Qty: 30 0RF No Action Abilify QMONTH buspirone 10 mg tablet 10 mg PO DAILY fluoxetine [Prozac] 20 mg capsule 20 mg PO DAILY sucralfate [Carafate] 1 gram tablet 1 g PO BID Qty: 20 0RF omeprazole 40 mg capsule,delayed release(DR/EC) 40 mg PO DAILY Qty: 30 0RF sucralfate [Carafate] 1 gram tablet 1 g PO TID Qty: 30 0RF clindamycin HCl 150 mg capsule 300 mg PO Q8H Qty: 21 0RF Primary Care Provider: Ruben Jay Referrals: Ruben Jay MD [Primary Care Provider] - 10-14 Days if not better Dentist,Your [STAFF PHYSICIAN] - As soon as possible Disposition Disposition: Home, Self Care
--- NOTE | 2023-11-21 02:41 | ED.RN ---
WHEN ASKED IF PT WAS HAVING ANY THOUGHTS OF HARMING YOURSELF, PT STATES THEY WOULD BE LYING IF THEY SAID NO. FURTHER STATES I WOULD NEVER FOLLOW THROUGH WITH IT. SUICIDE IS SELFISH AND I WOULD NEVER PASS MY PAIN ONTO MY LOVED ONES. PT FURTHER STATES THEY HAVE A COUNSELOR AND PSYCHIATRIST THEY SEE ON A REGULAR BASIS AND THEY DISCUSS THESE THOUGHTS WITH THEM. DENIES PLAN. DENIES INTENTION. TRIGGERS FOR LOW RISK OF SI. DR HERNADEZ AWARE. NO NEED FOR SITTER OR ADDITIONAL FOLLOW UP W/COUNSELING CENTER [facility].
[2023-11-21] MEDS: cycloBENZAPRine HCl 10 MG Tablet PO (02:54)
[2023-11-21] MEDS: AMOXICILLIN 500 MG CAPSULE PO (02:54)
== END 2023-11-21 03:01 | disposition home or self-care (01) ==
PROVIDERS: Emergency Provider Emergency Medicine; PCP Family Medicine; Visit Provider Emergency Medicine
DX: K02.9 Dental caries, unspecified (principal); F25.9 Schizoaffective disorder, unspecified; S29.012A Strain of muscle and tendon of back wall of thorax, initial encounter; K08.89 Other specified disorders of teeth and supporting structures; F41.9 Anxiety disorder, unspecified; F17.210 Nicotine dependence, cigarettes, uncomplicated; X50.0XXA Overexertion from strenuous movement or load, initial encounter; Y92.89 Other specified places as the place of occurrence of the external cause
CPT/HCPCS: 99283

== ENCOUNTER 2024-08-19 12:24 | Emergency (ER) | payer MEDICARE, MEDICAID, SELFPAY ==
[2024-08-19 12:25] VITALS: BP 131/91; PULSE 110; RESP 15; TEMP 36.1; O2SAT 99; BMI 26.6
[2024-08-19] MEDS: Penicillin Vk 250 MG Tablet 500 MG PO (12:40)
[2024-08-19] MEDS: Ketorolac 30 MG/ML Syringe IM (12:40)
--- NOTE | 2024-08-19 13:09 | ED.VIS.DENTA ---
HPI <JIMENA Kirkpatrick - Last Filed: 08/19/24 13:12> History of Present Illness Chief Complaint: Dental Narrative Narrative: 39-year-old female developed pain in her left lower molar last night. This molar has significant decay down to the gumline. She states she was told to have a root canal in the past but avoided it. She denies fever chills, nausea or vomiting, headache, difficulty swallowing or breathing. She took Midol with some relief. PFSH <JIMENA Kirkpatrick - Last Filed: 08/19/24 13:12> [facility] Medical History Alcohol abuse Anxiety Bipolar affective, mixed Boxers fracture Peptic ulcer PTSD (post-traumatic stress disorder) Schizo affective schizophrenia Home Medications ?Medication ?Instructions ?Recorded ?Last Taken ?Type Abilify QMONTH 11/28/20 Unknown History buspirone 10 mg tablet 10 mg PO DAILY 05/21/22 Unknown History fluoxetine 20 mg capsule (Prozac) 20 mg PO DAILY 05/21/22 Unknown History omeprazole 40 mg capsule,delayed 40 mg PO DAILY #30 caps 06/20/22 Unknown Rx release sucralfate 1 gram tablet (Carafate) 1 g PO BID #20 tabs 06/20/22 Unknown Rx sucralfate 1 gram tablet (Carafate) 1 g PO TID #30 tabs 06/21/22 Unknown Rx clindamycin HCl 150 mg capsule 300 mg (2 x 150 mg) PO Q8H #21 caps 10/14/22 Unknown Rx amoxicillin 500 mg tablet 500 mg PO TID #30 tabs 11/21/23 Unknown Rx cyclobenzaprine 10 mg tablet 10 mg PO TID PRN Muscle Spasm #12 11/21/23 Unknown Rx TABLETS penicillin V potassium 500 mg 500 mg PO 4X/DAY #40 tabs 08/19/24 Unknown Rx tablet Allergy/AdvReac Type Severity Reaction Status Date / Time latex Allergy Mild Rash Verified 08/19/24 12:25 acetaminophen (From Vicodin) AdvReac Nausea Verified 08/19/24 12:25 hydrocodone (From Vicodin) AdvReac Nausea Verified 08/19/24 12:25 tramadol AdvReac Nausea Verified 08/19/24 12:25 Surgical History H/O plastic surgery Hx of removal of ovary Social History Smoking Status: Current every day smoker tobacco type: cigarettes alcohol intake: current alcohol intake frequency: a few times a month substance use type: does not use ROS <JIMENA Kirkpatrick - Last Filed: 08/19/24 13:12> ROS ED ROS Narrative Constitutional: Negative for fever, chills, malaise. Respiratory: Negative for shortness of breath. GI: Negative for nausea, vomiting. Neuro: Negative for headache. EXAM <JIMENA Kirkpatrick - Last Filed: 08/19/24 13:12> Physical Exam Narrative Exam Narrative: CONST: Patient sitting in no acute distress. EYES: Normal inspection. ENT: No facial swelling or erythema, left lower posterior molar is decayed down to the gumline with tenderness to palpation. There is no trismus or tongue elevation, sublingual space is soft, no periapical abscess. No submental or submandibular masses, trachea midline, neck supple. No drooling or stridor. NECK: Normal inspection. RESP: No respiratory distress, CTAB. CVS: Regular rate and rhythm, no murmur, no gallop. SKIN: Color normal, no rash, warm, dry, intact. EXTREMITIES: Normal appearance, no pedal edema. NEURO: Alert and answering questions appropriately. PSYCH: Normal affect. Const Vital Signs: 08/19/24 12:25 Temperature 97 F L Temperature Source Temporal Pulse Rate 110 H Respiratory Rate 15 Blood Pressure 131/91 H Blood Pressure Mean 104 Pulse Ox 99 Oxygen Delivery Method Room Air <Dr. Bj Carpenter MD - Last Filed: 08/19/24 14:31> Physical Exam Const Vital Signs: 08/19/24 12:25 Temperature 97 F L Temperature Source Temporal Pulse Rate 110 H Respiratory Rate 15 Blood Pressure 131/91 H Blood Pressure Mean 104 Pulse Ox 99 Oxygen Delivery Method Room Air MDM <JIMENA Kirkpatrick - Last Filed: 08/19/24 13:12> MDM MDM Narrative Medical decision making narrative: Patient has significant decay down to the gumline in the left lower posterior molar. She developed pain last night. She appears well and nontoxic. She was tachycardic at 110 with otherwise normal vital signs. The molar has eroded to the gumline without signs of. Provide sepsis or Nando's angina. She was given IM Toradol and first dose of penicillin VK with prescription for antibiotics. She declined a dental block. She was instructed to follow-up with a dentist and was discharged in stable condition. <Dr. Bj Carpenter MD - Last Filed: 08/19/24 14:31> MDM Treatment and Re-Evaluation Narrative: I have personally performed a face to face assessment of the patient and have reviewed the NERY Note. I performed a substantive portion of the visit including all aspects of the following. My colin findings include: History is focal dental pain no fevers or chills or bleeding/discharge. Gradual onset. Exam is tenderness near decayed focal dentition, no palpable abscess no trismus no significant external asymmetry. Nothing to drain. Medical Decison Making : Refuses nerve block, will prescribe antibiotics and something for pain. Other additions or changes: [None] Discharge Plan Triage Chief Complaint: Dental ED Midlevel Provider: Elena Miranda ED Provider: Bj Carpenter Dx/Rx/DC Orders Clinical Impression: Dental abscess Instructions: ED Dental Abscess Prescriptions: New penicillin V potassium 500 mg tablet 500 mg PO 4X/DAY Qty: 40 0RF No Action Abilify QMONTH buspirone 10 mg tablet 10 mg PO DAILY fluoxetine [Prozac] 20 mg capsule 20 mg PO DAILY sucralfate [Carafate] 1 gram tablet 1 g PO BID Qty: 20 0RF omeprazole 40 mg capsule,delayed release(DR/EC) 40 mg PO DAILY Qty: 30 0RF sucralfate [Carafate] 1 gram tablet 1 g PO TID Qty: 30 0RF clindamycin HCl 150 mg capsule 300 mg PO Q8H Qty: 21 0RF cyclobenzaprine [cyclobenzaprine] 10 mg tablet 10 mg PO TID PRN (Reason: Muscle Spasm) Qty: 12 0RF amoxicillin 500 mg tablet 500 mg PO TID Qty: 30 0RF Primary Care Provider: Ruben Jay Referrals: Ruben Jay MD [Primary Care Provider] - Activity Restrictions/Additional Instructions: You can take [id number] pain relievers such as Tylenol or Midol which you said helped. Follow-up with a dentist. Print Language: Mosotho Disposition Disposition: Home, Self Care Discharge Date/Time: 08/19/24 13:16
--- NOTE | 2024-08-20 17:12 | ED.RN ---
Pt called and wanted Rx moved to [facility] due to [facility] retail pharm being closed. This was completed.
== END 2024-08-19 13:16 | disposition home or self-care (01) ==
LOC: ED 12:47
PROVIDERS: Emergency Provider Emergency Medicine; PCP Family Medicine; Visit Provider Emergency Medicine
DX: K04.7 Periapical abscess without sinus (principal); K02.9 Dental caries, unspecified; F17.210 Nicotine dependence, cigarettes, uncomplicated; Z79.899 Other long term (current) drug therapy
CPT/HCPCS: 96372; 99282

== ENCOUNTER 2024-10-23 15:02 | Emergency (ER) | payer MEDICARE, SELFPAY ==
[2024-10-23 15:03] VITALS: BP 138/96; PULSE 57; RESP 19; TEMP 36.6; O2SAT 99; BMI 27.3
--- NOTE | 2024-10-23 15:22 | EDS_ITS ---
HPI <CHARLIE Childs - Last Filed: 10/23/24 16:13> History of Present Illness Chief Complaint: Bite Narrative Narrative: Patient is a 39-year-old female with no significant medical history who presents to the emergency department after being attacked by a dog. Patient states that she [place], [place] Patient states the dog came [place] of the [place] and attacked her dog, she tried to break the 2 fighting dogs up. She received bite wounds to the hand, right elbow, as well as the right lower extremity. Patient's tetanus vaccination unknown. Patient does not know who his dog it was. [facility] <CHARLIE Childs - Last Filed: 10/23/24 16:13> [facility] Medical History Alcohol abuse Anxiety Bipolar affective, mixed Boxers fracture Peptic ulcer PTSD (post-traumatic stress disorder) Schizo affective schizophrenia Home Medications ?Medication ?Instructions ?Recorded ?Last Taken ?Type Abilify QMONTH 11/28/20 Unknown Hist ory buspirone 10 mg tablet 10 mg PO DAILY 05/21/22 Unkn own History fluoxetine 20 mg capsule (Prozac) 20 mg PO DAILY 05/21 Unknown History omeprazole 40 mg capsule,delayed 40 mg PO DAILY #30 ca ps 06/20/22 Unknown Rx release sucralfate 1 gram tablet (Carafate) 1 g PO BID #20 tab s 06/20/22 Unknown Rx sucralfate 1 gram tablet (Carafate) 1 g PO TID #30 tab s 06/21/22 Unknown Rx clindamycin HCl 150 mg capsule 300 mg (2 x 150 mg) PO Q8H #21 caps 10/14/22 Unknown Rx amoxicillin 500 mg tablet 500 mg PO TID #30 tabs 11/20 Unknown Rx cyclobenzaprine 10 mg tablet 10 mg PO TID PRN Muscle S pasm #12 11/21/23 Unknown Rx TABLETS penicillin V potassium 500 mg 500 mg PO 4X/DAY #40 tab s 08/19/24 Unknown Rx tablet amoxicillin 875 mg-potassium 1 tab PO BID 10 days #19 tabs 10/23/24 Unknown Rx clavulanate 125 mg tablet bacitracin 500 unit/gram topical 1 applic topical Q8H #14 grams 10/23/24 Unknown Rx ointment oxycodone-acetaminophen 5 mg-325 1 tab PO Q8H PRN pain 2 days #6 10/23/24 Unknown Rx mg tablet (Percocet) tabs Allergy/AdvReac Type Severity Reaction Status Date / Time latex Allergy Mild Rash Verified 10/23/24 15:08 acetaminophen (From Vicodin) AdvReac Nausea Verified 10/23/24 15:08 hydrocodone (From Vicodin) AdvReac Nausea Verified 10/23/24 15:08 tramadol AdvReac Nausea Verified 10/23/24 15:08 Surgical History H/O plastic surgery Hx of removal of ovary Social History Smoking Status: Current every day smoker tobacco type: cigarettes alcohol intake: current alcohol intake frequency: a few times a month substance use type: does not use ROS <CHARLIE Childs - Last Filed: 10/23/24 16:13> ROS ED ROS Narrative Constitutional: Negative for fever, chills, weight loss, weakness Eyes: Negative for vision loss, vision change, double vision ENT: Negative for any sore throat, ear pain, congestion Cardiovascular: Negative for any chest pain, tightness, palpitations Respiratory: Negative for any cough, sputum production, hemoptysis, dyspnea, dyspnea on exertion, orthopnea Gastrointestinal: Negative for any abdominal pain, nausea, vomiting, diarrhea, constipation, blood in stool, blood in vomit : Negative for any urinary frequency, dysuria, retention, blood in urine Muscle skeletal: Negative for any neck pain, back pain. Positive pain to the right lower extremity, right hand, right elbow Neurological: Negative for any headache, syncope, dizziness Skin: Negative for any rashes, itching. Positive for dog bite to the right sy, right hand, right elbow Psychiatric: Negative for any depression, anxiety, stress, suicidal ideation, homicidal ideation Hematologic: Negative for any excessive bruising, easy bleeding EXAM <CHARLIE Childs - Last Filed: 10/23/24 16:13> Physical Exam Narrative Exam Narrative: Vital signs reviewed. Patient is anxious however alert and orient x 4. HEET: Head normocephalic atraumatic, TMs clear bilaterally. Posterior pharynx is clear, moist mucous membranes. Nares clear bilaterally. Neck: Supple with no lymphadenopathy or tenderness. No signs of meningismus. Cardiac: Regular rate and rhythm no murmurs gallops or rubs, equal peripheral pulses bilaterally. Respiratory: Lungs clear to auscultation bilaterally. No chest tenderness. Abdomen: Soft, nontender, nondistended. No abdominal bruit or pulsatile masses. No hepatosplenomegaly Extremities: Patient is ambulatory, able to move all extremities. The most severe dog bite is on the anterior right tibia, this is midline. This does seem to be full-thickness, there is some soft tissue exposed. There is some small puncture wounds to the right hand as well as to the right elbow however these are superficial in nature. Full range of motion noted. There is no signs of foreign body, no erythema, edema. Neuro: Cranial nerves II through XII intact, no focal neurological deficits. Skin: Clean dry and intact with no rash, purpura, petechiae, vesicles or pustules. Backs/flank: No CVA tenderness, no midline spinal tenderness, no deformity. Psych: Normal mood and affect. No SI, HI or acute psychosis. Const Vital Signs: 10/23/24 15:03 Temperature 98 F Temperature Source Temporal Pulse Rate 57 L Respiratory Rate 19 H Blood Pressure 138/96 H Blood Pressure Mean 110 Pulse Ox 99 Oxygen Delivery Method Room Air Positive well nourished and well developed General Appearance ED: well developed <Dr. Gregorio Gonzalez DO - Last Filed: 10/23/24 21:45> Physical Exam Const Vital Signs: 10/23/24 15:03 Temperature 98 F Temperature Source Temporal Pulse Rate 57 L Respiratory Rate 19 H Blood Pressure 138/96 H Blood Pressure Mean 110 Pulse Ox 99 Oxygen Delivery Method Room Air MDM <CHARLIE Childs - Last Filed: 10/23/24 16:13> MDM Radiography Diagnostic Testing: Clinical Impression(s) from Imaging Studies Elbow X-Ray 10/23/24 15:25 IMPRESSION: Negative for fracture or dislocation. No significant joint effusion. No radiopaque foreign body. Reading Location: [facility] Hand X-Ray 10/23/24 15:25 IMPRESSION: Negative for fracture or dislocation. No radiopaque foreign body. Intact dorsal plate/screw fixation hardware in the 4th metacarpal. Reading Location: [facility] Tibia/Fibula X-Ray 10/23/24 15:25 IMPRESSION: Negative for fracture or dislocation. No radiopaque foreign body. Reading Location: [facility] Treatment and Re-Evaluation :: Differential diagnosis includes however is not limited to: Open fracture, dog bite, full-thickness laceration, superficial laceration, foreign body Patient appears generally well, vital signs are stable, patient is nontoxic- appearing. Presenting to the emergency department for complaints of dog bite to the right leg, right hand and elbow. Patient will be updated on her tetanus vaccination, oral Percocet given to the patient. X-rays of the right tibia- fibula, right hand, right elbow will be obtained. Patient will also receive Augmentin. Patient's x-rays of the right hand and right elbow as well as the right tibia- fibula were negative. The largest laceration roughly 2 cm and a flap-like fashion is on the anterior aspect of the tibia. This will need sutured, there is some fat tissue exposed. The remainder of the puncture wounds to the calf, right hand and elbow are small, and will not require any suture. Patient will have these cleansed, dressed. I was able to anesthetize the laceration to the tibia. This was used with lidocaine with epinephrine. Sterile gloves, sterile drapes were used. 3 simple interrupted sutures of 3-0 Ethilon were used. These were closed slightly, not tight to allow drainage. Patient was much more calm after the sutures. Patient will be placed on Augmentin for home, given a short course of pain medicine. She will monitor for any signs of infection. She is instructed to return for any worsening symptoms, all questions answered, will have the sutures removed in 10 days. <Dr. Gregorio Gonzalez, DO - Last Filed: 10/23/24 21:45> [facility] MDM Narrative Medical decision making narrative: Supervisory Physician Note Patient was seen and examined with the Advanced Practice Provider. Nursing notes and vital signs have been reviewed. Pertinent old records have been reviewed. I agree with the essential elements of the NERY's history, physical exam, assessment, and plan. The differential diagnosis and management options were discussed with the NERY. I participated in determining and agree with the management, procedures, final impression and disposition as documented. See changes noted by me. Please see addendum or separate note for any additional details. Radiography Diagnostic Testing: Clinical Impression(s) from Imaging Studies Elbow X-Ray 10/23/24 15:25 IMPRESSION: Negative for fracture or dislocation. No significant joint effusion. No radiopaque foreign body. Reading Location: [facility] Hand X-Ray 10/23/24 15:25 IMPRESSION: Negative for fracture or dislocation. No radiopaque foreign body. Intact dorsal plate/screw fixation hardware in the 4th metacarpal. Reading Location: [facility] Tibia/Fibula X-Ray 10/23/24 15:25 IMPRESSION: Negative for fracture or dislocation. No radiopaque foreign body. Reading Location: [facility] Discharge Plan Triage Chief Complaint: Bite ED Midlevel Provider: Larry Tidwell ED Provider: Gregorio Gonzalez Dx/Rx/DC Orders Clinical Impression: Dog bite of multiple sites Instructions: ED Dog Bite Prescriptions: New amoxicillin-pot clavulanate 875-125 mg tablet 1 tab PO BID 10 Days Qty: 19 0RF oxycodone-acetaminophen [Percocet] 5-325 mg tablet 1 tab PO Q8H PRN (Reason: pain) 2 Days Qty: 6 0RF bacitracin 500 unit/gram ointment 1 applic topical Q8H Qty: 14 0RF No Action Abilify QMONTH buspirone 10 mg tablet 10 mg PO DAILY fluoxetine [Prozac] 20 mg capsule 20 mg PO DAILY sucralfate [Carafate] 1 gram tablet 1 g PO BID Qty: 20 0RF omeprazole 40 mg capsule,delayed release(DR/EC) 40 mg PO DAILY Qty: 30 0RF sucralfate [Carafate] 1 gram tablet 1 g PO TID Qty: 30 0RF clindamycin HCl 150 mg capsule 300 mg PO Q8H Qty: 21 0RF penicillin V potassium 500 mg tablet 500 mg PO 4X/DAY Qty: 40 0RF cyclobenzaprine [cyclobenzaprine] 10 mg tablet 10 mg PO TID PRN (Reason: Muscle Spasm) Qty: 12 0RF amoxicillin 500 mg tablet 500 mg PO TID Qty: 30 0RF Primary Care Provider: Care Physician,No Primary Referrals: Ruben Jay MD [Non-Staff] - Activity Restrictions/Additional Instructions: Please have your sutures removed in 10 days. Keep the area clean and dry. Use the bacitracin ointment 2-3 times a day. The Augmentin must be finished, threw the bottle away empty. Print Language: Tuvaluan Disposition Disposition: Home, Self Care Discharge Date/Time: 10/23/24 16:30
--- NOTE | 2024-10-23 15:25 | RAD_ITS ---
PROCEDURE: HAND MIN 3 VIEWS REASON FOR EXAM: DOG BITE TECHNIQUE: 3 view(s) of the right hand COMPARISON: None. FINDINGS: See impression RAD/Hand Min 3 Views IMPRESSION: Negative for fracture or dislocation. No radiopaque foreign body. Intact dors al plate/screw fixation hardware in the 4th metacarpal. Reading Location: [facility]
--- NOTE | 2024-10-23 15:25 | RAD_ITS ---
PROCEDURE: ELBOW MIN 3 VIEWS REASON FOR EXAM: Pain, trauma TECHNIQUE: 3 view(s) of each elbow COMPARISON: None. FINDINGS: See impression RAD/Elbow min 3 Views IMPRESSION: Negative for fracture or dislocation. No significant joint effusion. No radio paque foreign body. Reading Location: [facility]
--- NOTE | 2024-10-23 15:25 | RAD_ITS ---
PROCEDURE: Right tibia and fibula radiographs REASON FOR EXAM: DOG BITE TECHNIQUE: Four views of the right tibia and fibula COMPARISON: None. FINDINGS: See impression RAD/Tibia & Fibula 2 Views IMPRESSION: Negative for fracture or dislocation. No radiopaque foreign body. Reading Location: [facility]
[2024-10-23] MEDS: Amox/Clavulanate 875 MG Tablet PO (15:31)
[2024-10-23] MEDS: oxyCODONE 5 MG Tablet PO (15:31)
[2024-10-23] MEDS: Diphth,Pertuss(Acell),Tet Vac 0.5 ML Vial IM (15:31)
[2024-10-23] MEDS: Lidocaine 1% /Epi 1:100 (20ml) 20 ML Vial 3 ML INFILT (15:41)
== END 2024-10-23 16:30 | disposition home or self-care (01) ==
PROVIDERS: Emergency Provider Surgery; Visit Provider Surgery
DX: S81.811A Laceration without foreign body, right lower leg, initial encounter (principal); F25.9 Schizoaffective disorder, unspecified; S81.831A Puncture wound without foreign body, right lower leg, initial encounter; S51.031A Puncture wound without foreign body of right elbow, initial encounter; S61.431A Puncture wound without foreign body of right hand, initial encounter; Z23 Encounter for immunization; W54.0XXA Bitten by dog, initial encounter; Y93.K1 Activity, walking an animal; Y92.821 Forest as the place of occurrence of the external cause; F39 Unspecified mood [affective] disorder; F41.9 Anxiety disorder, unspecified; F17.210 Nicotine dependence, cigarettes, uncomplicated; Z79.899 Other long term (current) drug therapy
CPT/HCPCS: 12001; 73080; 73130; 73590; 90715; 99283; A4216